=== PATIENT | male | born 1950 | race American Indian/Alaskan Native ===

== ENCOUNTER 2018-06-26 09:42 | Outpatient (CLI) | payer BC, MEDICARE ==
--- NOTE | 2018-06-26 13:45 | Ultrasound Report ---
ULTRASOUND EXTREMITY NONVASCULAR LEFT History: Left groin pain. Findings: Targeted grayscale imaging was performed in both groin regions. I scanned this patient myself. The patient complains of mild swelling in the left groin region. Targeted scanning this region demonstrates normal-appearing subcutaneous fat and muscle. Visually the subcutaneous fat appears more prominent on the left side than the right side. I suspect this represents a nonvisualized fat containing left inguinal hernia. There is no evidence for bowel loops, mass, adenopathy or cyst. Impression: Probable small left inguinal hernia containing fat. See above.
== END 2018-06-26 09:43 | disposition home or self-care (01) ==
LOC: US 09:42
PROVIDERS: ATTEND Internal Medicine
DX: R10.31 Right lower quadrant pain (principal); Z88.6 Allergy status to analgesic agent